=== PATIENT | male | born 1995 | race Caucasian/White ===

== ENCOUNTER 2020-09-05 08:11 | Inpatient (IN) | payer MEDICAID ==
[~2020-09-05] VITALS: Ht 193 cm; Wt 152.9 kg
[2020-09-05 10:52] VITALS: BP 139/67
[2020-09-05] MEDS ORDERED: INFLUENZA VIRUS VACCINE QVS 2020-21 (6MO+)/PF 60 MCG/0.5 ML SYRINGE IM ONE (11:00)
[2020-09-05] MEDS ORDERED: OLANZapine 10 MG TABLET PO SCH (11:00)
[2020-09-05 16:36] VITALS: BP 124/78
[2020-09-05] MEDS: ZINC OXIDE 16% PASTE 57 GM TUBE TP SCH (19:58)
[2020-09-05] MEDS: BACITRACIN 28 GM OINTMENT TP SCH (20:02)
[2020-09-05] MEDS: ARIPiprazole 10 MG TABLET PO SCH (21:07)
[2020-09-06 00:40] VITALS: BP 140/82
[2020-09-06] MEDS: QUEtiapine FUMARATE 100 MG TABLET PO PRN ×2 (01:12→16:04)
[2020-09-06] MEDS: LORazepam 2 MG TABLET PO PRN ×3 (01:52→17:28)
[2020-09-06] MEDS: ZOLPIDEM TARTRATE 10 MG TABLET PO PRN (01:53)
[2020-09-06 08:16] LABS: BASOPHILS % (AUTO) 0.4 % (0.0-2.0); EOSINOPHILS % (AUTO) 2.9 % (1.0-6.0); HEMATOCRIT 38.9 % (41-53); HEMOGLOBIN 12.7 g/dL (13.5-17.5); LYMPHOCYTES % (AUTO) 27.3 % (22.0-44.0); MEAN CORPUSCULAR HEMOGLOBIN 29.3 pg (26.0-34.0); MEAN CORPUSCULAR HGB CONC 32.7 G/dL (31.0-37.0); MEAN CORPUSCULAR VOLUME 90 fL (80-100); MONOCYTES # (AUTO) 0.5 K/uL (0.1-1.0); MONOCYTES % (AUTO) 7.3 % (2.0-9.0); NEUTROPHILS # (AUTO) 4.6 K/uL (1.8-7.7); NEUTROPHILS % (AUTO) 62.1 % (40.0-70.0); PLATELET COUNT (AUTO) 174 K/uL (150-450); RED BLOOD CELL COUNT(AUTO) 4.34 MIL/uL (4.50-5.90); RED CELL DISTRIBUTION WIDTH 14.2 % (11.5-14.5)
[2020-09-06] MEDS: ARIPiprazole 10 MG TABLET PO SCH ×2 (08:41→21:00)
[2020-09-06] MEDS: BACITRACIN 28 GM OINTMENT TP SCH ×2 (08:41→16:03)
[2020-09-06] MEDS: ZINC OXIDE 16% PASTE 57 GM TUBE TP SCH ×2 (08:42→16:03)
[2020-09-06] MEDS ORDERED: LOPERAMIDE HCL 2 MG CAPSULE PO PRN (08:45)
[2020-09-06] MEDS ORDERED: PETROLATUM,WHITE 28 GM JELLY TP PRN (08:45)
[2020-09-06] MEDS ORDERED: ALBUTEROL SULFATE HFA 90 MCG/PUFF 8 GM INHALER IH PRN (08:45)
[2020-09-06] MEDS ORDERED: DOCUSATE SODIUM 100 MG CAPSULE PO PRN (08:45)
[2020-09-06] MEDS ORDERED: ACETAMINOPHEN 325 MG TABLET PO PRN (08:45)
[2020-09-06] MEDS ORDERED: GuaiFENesin/D-METHORPHAN [SUGAR-FREE] 200-20MG/10 ML SYRUP UDCUP PO PRN (08:45)
[2020-09-06] MEDS ORDERED: MAG HYDROX/AL HYDROX/SIMETH ES 30 ML SUSPENSION UDCUP PO PRN (08:45)
[2020-09-06] MEDS ORDERED: MAGNESIUM HYDROXIDE SUSPENSION 30 ML UDCUP PO PRN (08:45)
[2020-09-06] MEDS ORDERED: CloNIDine HCL 0.1 MG TABLET PO PRN (08:45)
[2020-09-06] MEDS ORDERED: ONDANSETRON HCL 4 MG TABLET PO PRN (08:45)
[2020-09-06 08:48] LABS: ALANINE AMINOTRANSFERASE 23 U/L (12-78); ALBUMIN 3.1 g/dL (3.4-5.0); ALKALINE PHOSPHATASE 69 U/L (46-116); ANION GAP 5 mmol/L (8-16); ASPARTATE AMINOTRANSFERASE 10 U/L (15-37); BILIRUBIN,TOTAL 0.2 mg/dL (0.1-1.0); CALCIUM, TOTAL 8.8 mg/dL (8.8-10.5); CARBON DIOXIDE 29 mmol/L (22-29); CHLORIDE 106 mmol/L (98-107); CHOL/HDL RATIO 2.7 (4.2-7.3); CHOLESTEROL 97 mg/dL (131-200); CREATININE 0.84 mg/dL (0.60-1.30); FREE T4 (FREE THYROXINE) 0.98 ng/dL (0.76-1.46); GLOMERULAR FILTR. RATE CALC > 60 mL/min (>60); GLUCOSE,RANDOM 95 mg/dL (70-110); HDL CHOLESTEROL 36 mg/dL (40-60); LDL CHOL (CALC.) 45 mg/dL (0-130); POTASSIUM 4.1 mmol/L (3.5-5.1); SODIUM SERUM 140 mmol/L (136-145); THYROID STIMULATING HORMONE 0.19 uIU/mL (0.36-3.74); TOTAL PROTEIN, SERUM 6.2 g/dL (6.4-8.2); TRIGLYCERIDES 79 mg/dL (15-150); UREA NITROGEN, BLOOD 10 mg/dL (7-18)
[2020-09-06 09:50] VITALS: BP 135/66
[2020-09-06] MEDS ORDERED: ARIPiprazole ER SUSPENSION 400 MG PRE-FILLED DUAL CHAMBER SYRINGE IM SCH (14:00)
[2020-09-06 17:17] VITALS: BP 116/62
[2020-09-07 03:31] VITALS: BP 118/68
[2020-09-07] MEDS: LORazepam 2 MG TABLET PO PRN ×2 (07:49→12:35)
[2020-09-07] MEDS: BACITRACIN 28 GM OINTMENT TP SCH ×2 (08:39→16:26)
[2020-09-07] MEDS: ZINC OXIDE 16% PASTE 57 GM TUBE TP SCH ×2 (08:39→16:26)
[2020-09-07] MEDS: ARIPiprazole 10 MG TABLET PO SCH ×2 (08:39→20:48)
[2020-09-07 09:45] VITALS: BP 150/94
[2020-09-07 17:24] VITALS: BP 128/71
[2020-09-08 04:30] VITALS: BP 119/72
[2020-09-08] MEDS: QUEtiapine FUMARATE 100 MG TABLET PO PRN (08:52)
[2020-09-08] MEDS: LORazepam 2 MG TABLET PO PRN ×3 (08:52→21:10)
[2020-09-08] MEDS: ARIPiprazole 10 MG TABLET PO SCH ×2 (08:52→21:10)
[2020-09-08] MEDS: BACITRACIN 28 GM OINTMENT TP SCH ×2 (08:53→17:25)
[2020-09-08] MEDS: ZINC OXIDE 16% PASTE 57 GM TUBE TP SCH ×2 (08:53→17:25)
[2020-09-08 12:16] VITALS: BP 135/87
[2020-09-08 16:44] VITALS: BP 138/82
[2020-09-09 00:25] VITALS: BP 130/80
[2020-09-09 08:21] VITALS: BP 154/100
[2020-09-09] MEDS: ARIPiprazole 10 MG TABLET PO SCH ×2 (09:07→20:26)
[2020-09-09] MEDS: NICOTINE 14 MG/24 HOUR PATCH TD PRN (09:08)
[2020-09-09] MEDS: ZINC OXIDE 16% PASTE 57 GM TUBE TP SCH ×2 (09:36→16:29)
[2020-09-09] MEDS: BACITRACIN 28 GM OINTMENT TP SCH ×2 (09:36→16:28)
[2020-09-09] MEDS: LORazepam 2 MG TABLET PO PRN ×2 (09:51→14:37)
[2020-09-09] MEDS: QUEtiapine FUMARATE 100 MG TABLET PO PRN (16:01)
[2020-09-09 16:14] VITALS: BP 133/80
[2020-09-09] MEDS: ZOLPIDEM TARTRATE 10 MG TABLET PO PRN (20:28)
[2020-09-10 02:25] VITALS: BP 134/85
[2020-09-10 08:18] VITALS: BP 152/99
[2020-09-10] MEDS: ZINC OXIDE 16% PASTE 57 GM TUBE TP SCH ×2 (08:34→16:51)
[2020-09-10] MEDS: LORazepam 2 MG TABLET PO PRN ×2 (08:34→20:36)
[2020-09-10] MEDS: ARIPiprazole 10 MG TABLET PO SCH ×2 (08:34→20:31)
[2020-09-10] MEDS: BACITRACIN 28 GM OINTMENT TP SCH ×2 (08:34→16:51)
[2020-09-10] MEDS: IBUPROFEN 400 MG TABLET PO PRN ×2 (11:58→22:50)
[2020-09-10 16:05] VITALS: BP 140/86
[2020-09-10] MEDS: NICOTINE 14 MG/24 HOUR PATCH TD PRN (16:51)
[2020-09-11 01:38] VITALS: BP 151/91
[2020-09-11] MEDS: LORazepam 2 MG TABLET PO PRN (08:01)
[2020-09-11] MEDS: QUEtiapine FUMARATE 100 MG TABLET PO PRN (08:01)
[2020-09-11] MEDS: ARIPiprazole 10 MG TABLET PO SCH (08:01)
[2020-09-11 08:09] VITALS: BP 168/99
[2020-09-11] MEDS: BACITRACIN 28 GM OINTMENT TP SCH ×2 (08:46→17:48)
[2020-09-11] MEDS: ZINC OXIDE 16% PASTE 57 GM TUBE TP SCH ×2 (08:47→17:48)
[2020-09-11] MEDS: IBUPROFEN 400 MG TABLET PO PRN (10:07)
[2020-09-11 12:41] VITALS: BP 132/72
[2020-09-11 16:00] VITALS: BP 137/78
[2020-09-12 00:12] VITALS: BP 138/82
[2020-09-12] MEDS ORDERED: HALOPERIDOL LACTATE 5 MG/ML VIAL ONE (02:14)
[2020-09-12] MEDS ORDERED: DiphenhydrAMINE HCL 50 MG/ML VIAL ONE (02:14)
[2020-09-12] MEDS ORDERED: LORazepam 2 MG/ML VIAL ONE (02:14)
[2020-09-12] MEDS ORDERED: HALOPERIDOL LACTATE 5 MG/ML VIAL IM ONE (02:15)
[2020-09-12] MEDS ORDERED: DiphenhydrAMINE HCL 50 MG/ML VIAL IM ONE (02:15)
[2020-09-12] MEDS ORDERED: LORazepam 2 MG/ML VIAL IM ONE (02:15)
[2020-09-12 08:51] VITALS: BP 168/99
[2020-09-12] MEDS: ZINC OXIDE 16% PASTE 57 GM TUBE TP SCH (09:00)
[2020-09-12] MEDS ORDERED: ARIPiprazole 10 MG TABLET PO SCH (09:00)
[2020-09-12] MEDS: BACITRACIN 28 GM OINTMENT TP SCH (09:55)
[2020-09-12] MEDS ORDERED: ARIP400S3 IM (11:04)
== END 2020-09-12 13:15 | disposition home or self-care (01) | DRG 750 ==
LOC: B3A 09:40
PROVIDERS: ADMIT Psychiatry & Neurology Child & Adolescent Psychiatry; ATTEND Psychiatry & Neurology Child & Adolescent Psychiatry
DX: F20.0 Paranoid schizophrenia (principal); Z68.41 Body mass index [BMI] 40.0-44.9, adult; D64.9 Anemia, unspecified; E66.9 Obesity, unspecified; J45.909 Unspecified asthma, uncomplicated; F41.9 Anxiety disorder, unspecified; Z59.0 Homelessness; Z28.21 Immunization not carried out because of patient refusal
CPT/HCPCS: 83036; 84436; 84439; 84443; J0401; J1200; J1630; J2060

== ENCOUNTER 2022-02-20 11:04 | Emergency (ER) | payer MEDICAID, OTHER ==
[~2022-02-20] VITALS: Ht 188 cm; Wt 145.4 kg
[~2022-02-20 11:04] MED LIST: ARIP400S3 IM
[2022-02-20] MEDS ORDERED: LAMO25TA25 PO (11:13)
[2022-02-20] MEDS ORDERED: ARIP5TAB37 PO (11:13)
[2022-02-20 18:08] LABS: BASOPHILS % (AUTO) 0.4 % (0.0-2.0); EOSINOPHILS % (AUTO) 1.1 % (1.0-6.0); HEMATOCRIT 45.6 % (41-53); HEMOGLOBIN 15.2 g/dL (13.5-17.5); LYMPHOCYTES # (AUTO) 2.7 K/uL (1.0-4.8); LYMPHOCYTES % (AUTO) 31.3 % (22.0-44.0); MEAN CORPUSCULAR HEMOGLOBIN 30.3 pg (26.0-34.0); MEAN CORPUSCULAR HGB CONC 33.3 G/dL (31.0-37.0); MEAN CORPUSCULAR VOLUME 91 fL (80-100); MONOCYTES # (AUTO) 0.6 K/uL (0.1-1.0); MONOCYTES % (AUTO) 7.5 % (2.0-9.0); NEUTROPHILS # (AUTO) 5.1 K/uL (1.8-7.7); NEUTROPHILS % (AUTO) 59.7 % (40.0-70.0); PLATELET COUNT (AUTO) 157 K/uL (150-450); RED CELL DISTRIBUTION WIDTH 12.6 % (11.5-14.5)
[2022-02-20 18:19] LABS: ANION GAP 3 mmol/L (8-16); CALCIUM, TOTAL 9.4 mg/dL (8.8-10.5); CARBON DIOXIDE 31 mmol/L (22-29); CHLORIDE 103 mmol/L (98-107); CREATININE 1.06 mg/dL (0.60-1.30); GLUCOSE,RANDOM 79 mg/dL (70-110); POTASSIUM 4.6 mmol/L (3.5-5.1); SODIUM SERUM 137 mmol/L (136-145); UREA NITROGEN, BLOOD 15 mg/dL (7-18)
[2022-02-20 18:21] LABS: GLOMERULAR FILTR. RATE CALC > 60 mL/min (>60)
[2022-02-20 18:25] LABS: ALANINE AMINOTRANSFERASE 24 U/L (12-78); ALBUMIN 4.2 g/dL (3.4-5.0); ALKALINE PHOSPHATASE 80 U/L (46-116); ASPARTATE AMINOTRANSFERASE 13 U/L (15-37); BILIRUBIN,TOTAL 0.5 mg/dL (0.1-1.0); LIPASE 129 U/L (73-393); TOTAL PROTEIN, SERUM 7.5 g/dL (6.4-8.2)
[2022-02-20 19:22] VITALS: BP 136/72
[2022-02-20] MEDS ORDERED: NYST15CR41 TP (19:25)
== END 2022-02-20 19:57 | disposition home or self-care (01) ==
LOC: EMS 11:06
DX: K62.5 Hemorrhage of anus and rectum (principal); B37.89 Other sites of candidiasis; F31.9 Bipolar disorder, unspecified; K64.4 Residual hemorrhoidal skin tags
CPT/HCPCS: 80053; 82271; 83690; 85025; 99285

== ENCOUNTER 2023-06-30 19:50 | Emergency (ER) | payer MEDICAID, OTHER ==
[~2023-06-30] VITALS: Ht 182.9 cm; Wt 111.4 kg
[~2023-06-30 19:50] MED LIST changes: -ARIP400S3 IM; +ARIP5TAB37 PO; +LAMO25TA36 PO; +NYST15CR41 TP
[2023-06-30 20:05] VITALS: BP 144/77; PULSE 101; RESP 18; TEMP 98.3
[2023-06-30] MEDS ORDERED: CEPHALEXIN MONOHYDRATE 500 MG CAPSULE PO ONE (22:00)
[2023-06-30] MEDS ORDERED: PERTUSS(ACELL),DIPH,TET VAC/PF 0.5 ML SYRINGE IM. ONE (22:00)
[2023-06-30] MEDS ORDERED: CEPH-558 PO (22:04)
== END 2023-06-30 22:46 | disposition home or self-care (01) ==
LOC: EMS 19:51
DX: S90.822A Blister (nonthermal), left foot, initial encounter (principal); S90.821A Blister (nonthermal), right foot, initial encounter; F31.9 Bipolar disorder, unspecified; X58.XXXA Exposure to other specified factors, initial encounter; Y93.89 Activity, other specified; Y92.89 Other specified places as the place of occurrence of the external cause; Y99.8 Other external cause status
CPT/HCPCS: 90471; 90715; 99283